=== PATIENT | female | born 1940 | race Caucasian/White ===

== ENCOUNTER 2019-04-12 08:01 | Outpatient (REF) | payer MEDICARE, SELFPAY ==
[2019-04-12 12:41] LABS: Chol HDL Ratio 3.37 mg/dL (0.0-4.40); Cholesterol 192 mg/dL (0-200); Glucose 95 mg/dL (65-115); HDL Cholesterol 57 mg/dL (60-100); LDL Cholesterol Calculated 113 mg/dL (50-129); LDL HDL Ratio 1.98 RATIO (0.00-3.22); Triglycerides 111 mg/dL (0-150)
[2019-04-12 13:37] LABS: Estmated Average Glucose 117; Hemoglobin A1C 5.7 % (4.0-6.0)
== END 2019-04-12 08:02 | disposition home or self-care (01) ==
LOC: LAB 08:01
PROVIDERS: Family Provider Internal Medicine; Visit Provider Dermatology
DX: Z01.89 Encounter for other specified special examinations (principal)
CPT/HCPCS: 80061; 82947; 83036

== ENCOUNTER 2019-07-11 12:44 | Outpatient (CLI) | payer MEDICARE, SELFPAY ==
--- NOTE | 2019-07-11 12:57 | MM_ITS ---
WS: [id number] BILATERAL DIGITAL SCREENING MAMMOGRAPHY WITH CAD CLINICAL INFORMATION: SCREEN HISTORY: Screening mammogram. No current complaints. COMPARISON: December 13, 2011 TECHNIQUE: Bilateral CC and MLO views. FINDINGS: The breasts are composed of heterogeneous fibroglandular density tissue, which can limit the detectio n of small underlying mass lesions. Lucent centered calcifications. Vascular calcification. No suspic ious mass, asymmetry, calcifications, or architectural distortion. No evidence of malignancy. MM/[place] [id number] IMPRESSION: BI-RADS: 2-Benign FOLLOW UP: 1 Year Follow-up Recommend return to annual screening mammography.
== END 2019-07-11 12:45 | disposition home or self-care (01) ==
PROVIDERS: PCP Internal Medicine; Visit Provider Internal Medicine
DX: Z12.31 Encounter for screening mammogram for malignant neoplasm of breast (principal)
CPT/HCPCS: 77067

== ENCOUNTER 2023-09-25 12:54 | Outpatient (RCR) | payer MEDICARE, SELFPAY | END 2023-10-04 23:59 | disposition home or self-care (01) | LOC: SPT 12:54 | PROVIDERS: PCP Internal Medicine; Visit Provider Internal Medicine | DX: M54.2 Cervicalgia (principal) | CPT/HCPCS: 97110; 97140; 97161 ==

== ENCOUNTER 2023-10-05 06:00 | Outpatient (RCR) | payer MEDICARE, SELFPAY | END 2023-11-04 23:59 | disposition home or self-care (01) | LOC: SPT 06:00 | PROVIDERS: PCP Internal Medicine; Visit Provider Internal Medicine | DX: M54.2 Cervicalgia (principal) | CPT/HCPCS: 97110; 97140 ==

== ENCOUNTER 2023-11-05 06:00 | Outpatient (RCR) | payer MEDICARE, SELFPAY | END 2023-11-20 23:59 | disposition home or self-care (01) | LOC: SPT 06:00 | PROVIDERS: PCP Internal Medicine; Visit Provider Internal Medicine | DX: M54.2 Cervicalgia (principal) | CPT/HCPCS: 97110; 97140 ==

== ENCOUNTER 2024-02-13 10:10 | Outpatient (CLI) | payer SELFPAY ==
[2024-02-13 10:25] LABS: HF Add Manual Diff No
[2024-02-13 10:37] LABS: Basophils % 0.6 %; Eosinophils # 0.1 10^3/uL (0.0-0.8); Eosinophils % 1.7 %; Hematocrit 36.8 % (36-47); Lymphocytes # 1.7 10^3/uL (0.8-4.8); Mean Corpuscular HGB Conc 32.9 g/dL (30-55); Mean Corpuscular Hemoglobin 30.9 pg (27-33); Mean Corpuscular Volume 93.9 fl (85-98); Mean Platelet Volume 8.4 fL (7.4-10.4); Monocytes # 0.4 10^3/uL (0.2-0.9); Monocytes % 7.4 %; Neutrophils # 3.16 10^3/uL (1.8-7.7); Neutrophils % 57.9 %; Nucleated Red Blood Cells % 0 %; Platelet Count 377 10^3/cmm (157-399); Red Blood Count 3.92 10^6/uL (3.85-5.65); Red Cell Distribution Width 11.9 % (12.1-15.1); White Blood Count 5.44 10^3/uL (3.29-11.43)
[2024-02-13 10:55] LABS: Estmated Average Glucose 100; Hemoglobin A1C 5.1 % (4.0-6.0)
[2024-02-13 11:21] LABS: 25 Hydroxy Vitamin D 27 ng/mL (30-100); Alanine Aminotransferase 10 U/L (0-33); Albumin Level 4.3 g/dL (3.5-5.2); Alkaline Phosphatase 89 U/L (35-105); Anion Gap 12.3 (5-19); Aspartate Amino Transferase 16 U/L (0-32); Blood Urea Nitrogen 17 mg/dL (8-23); Calcium 9.6 mg/dL (8.5-10.5); Carbon Dioxide 28 mmol/L (22-29); Chloride 102 mmol/L (98-107); Chol HDL Ratio 3.08 mg/dL (0.0-4.40); Cholesterol 191 mg/dL (0-200); Globulin 2.7 g/dL (1.3-4.6); Glucose 91 mg/dL (65-115); HDL Cholesterol 62 mg/dL (60-100); LDL Cholesterol Calculated 110 mg/dL (50-129); LDL HDL Ratio 1.77 RATIO (0.00-3.22); Osmolality Calculated 287 mOsm/kg (285-295); Potassium 4.3 mmol/L (3.5-5.1); Sodium 138 mmol/L (136-145); Thyroid Stimulating Hormone 1.04 uIU/mL (0.27-4.20); Total Bilirubin 0.3 mg/dL (0.15-1.2); Triglycerides 97 mg/dL (0-150)
== END 2024-02-13 10:11 | disposition home or self-care (01) ==
LOC: LAB 10:13
PROVIDERS: Visit Provider Dermatology
DX: Z13.9 Encounter for screening, unspecified (principal)

== ENCOUNTER 2024-06-27 14:28 | Outpatient (CLI) | payer MEDICARE, SELFPAY ==
--- NOTE | 2024-06-27 14:29 | MM_ITS ---
WS: [id number] BILATERAL SCREENING DIGITAL TOMOSYNTHESIS MAMMOGRAM WITH CAD HISTORY: SCREEN COMPARISON: 07/11/2019, 09/15/2005 Bilateral CC and MLO views with tomosynthesis and synthetic mammography submitted. Computer aided detection analyzed. Breast composition: The breasts are extremely dense, which lowers the sensitivity of mammography. No suspicious masses, microcalcifications or architectural distortion. Asymmetries, calcifications and nodules within each breast are stable. No new distortion. MM/MM scr tomosynthesis [id number] IMPRESSION: BI-RADS: 2 - Benign FOLLOW UP: 1 Year Follow-up
--- NOTE | 2024-06-27 14:30 | XR_ITS ---
WS: [id number] SCREENING DEXA SCAN [employer] CLINICAL INFORMATION: POSTMENOPAUSAL FINDINGS: The L1-L4 bone mineral density measures 1.159 g/cm2. This corresponds to a T score score of -0.2 and Z score of 1.4. Left femoral neck bone mineral density measures 0.655 g/cm2. This corresponds to a T score of -2.8 and Z score of -0.7. Right femoral neck bone mineral density measures 0.662 g/cm2. This corresponds to a T score -2.7of and Z score of -0.7. Mean femoral neck bone mineral density measures 0.659 g/cm2. This corresponds to a T score of -2.8 and Z score of -0.7. XR/XR DEXA axial skeleton* [id number] IMPRESSION: Normal bone mineralization lumbar spine. Osteoporosis femoral necks Patient's FRAX calculated 10 year probability for major osteoporotic fracture i s 37.1% and osteoporotic hip fracture is 26.9%.
== END 2024-06-27 14:29 | disposition home or self-care (01) ==
PROVIDERS: PCP Family Medicine; Visit Provider Family Medicine
DX: Z12.31 Encounter for screening mammogram for malignant neoplasm of breast (principal); Z78.0 Asymptomatic menopausal state; R92.343 Mammographic extreme density, bilateral breasts; N64.89 Other specified disorders of breast; R92.1 Mammographic calcification found on diagnostic imaging of breast; M81.0 Age-related osteoporosis without current pathological fracture
CPT/HCPCS: 77063; 77067; 77080